=== PATIENT | male | born 1955 | race Caucasian/White ===

== ENCOUNTER 2018-08-12 08:29 | Day surgery (SDC) | payer MEDICARE ==
[~2018-08-12] VITALS: Ht 160 cm; Wt 62.3 kg
[2018-08-12 08:58] LABS: CALC OSMOLALITY 283 mosm/kg (275-300); CALCIUM 10.1 mg/dL (8.5-10.1); CARBON DIOXIDE 31.9 mmol/L (21.0-32.0); CHLORIDE - SERUM 103 mmol/L (98-107); CREATININE - SERUM 0.7 mg/dL (0.6-1.3); GLUCOSE 92 mg/dL (74-106); POTASSIUM - SERUM 3.3 mmol/L (3.5-5.1); SODIUM 143 mmol/L (136-145); UREA NITROGEN 11 mg/dL (7-18); eGFR NON AFRICAN AMERICAN > 90 mL/min (90-120)
[2018-08-12 09:06] LABS: APTT 32.5 SECONDS (22.8-39.4); INR 0.99 (0.85-1.17); PROTIME 12.6 SECONDS (11.6-15.0)
[2018-08-12] MEDS ORDERED: LEVO-T88 MCG PO (09:06)
[2018-08-12] MEDS ORDERED: NORTRIPTYLINE H50 MG PO (09:07)
[2018-08-12] MEDS ORDERED: FLUTICASONE PRO16 GM NASAL (09:07)
[2018-08-12] MEDS ORDERED: EFFEXOR25 MG PO (09:08)
[2018-08-12] MEDS ORDERED: CALCIUM 250+D T1 TAB PO (09:09)
[2018-08-12] MEDS ORDERED: CLARITIN 10 MG10 MG PO (09:09)
[2018-08-12] MEDS ORDERED: ASCORBIC ACID500 MG PO (09:10)
[2018-08-12] MEDS ORDERED: MERIBIN5 MG PO (09:11)
[2018-08-12] MEDS ORDERED: MULTI-DAY VITAM1 TAB PO (09:11)
[2018-08-12] MEDS ORDERED: FERROUS SULFAT325 MG PO (09:12)
[2018-08-12] MEDS ORDERED: MAGNESIUM OXID250 MG PO (09:13)
[2018-08-12] MEDS ORDERED: VITAMIN B-121000 MCG PO (09:14)
[2018-08-12 09:16] VITALS: BP 142/83; Ht 160 cm; Wt 62.3 kg
[2018-08-12 09:39] LABS: BASOPHILS 0.7 % (0-2); EOSINOPHILS 2.2 % (0-7); HEMATOCRIT 38.3 % (42.0-54.0); HEMOGLOBIN 13.1 g/dL (13.5-17.5); IMMATURE GRANULOCYTES 0.2 % (0-5); LYMPHOCYTES 18.7 % (15-50); MCH 31.1 pg (26.0-34.0); MCHC 34.2 g/dL (31.0-37.0); MONOCYTES 9.2 % (2-11); PLATELET COUNT 231 10x3/uL (130-400); RBC 4.21 10x6/uL (4.20-6.10); RDW 12.8 % (11.5-14.5)
--- NOTE | 2018-08-12 12:16 | NUR ---
DC INSTRUCTIONS GIVEN TO PT. STATES UNDERSTANDING. DC'D IV CATH FULLY INTACT. PT LEFT UNIT VIA WC AT 1200
--- NOTE | 2018-08-12 16:35 | OP ---
PATIENT NAME: SANTA PASTOR MEDICAL RECORD: [id number] :53 LOCATION:[facility] ADMISSION DATE: SURGEON: ZEESHAN LIZ DO DATE OF OPERATION: 08/12/2018 PROCEDURE: Colonoscopy with polypectomy and biopsy. INDICATIONS FOR PROCEDURE: Screening for colorectal cancer with a personal history of colon cancer. SCOPE: [employer] video pediatric colonoscope. MEDICATIONS: Propofol 750 mg IV per Anesthesia. WITHDRAWAL TIME: 23 minutes. ESTIMATED BLOOD LOSS: Minimal. COMPLICATIONS: None. FINDINGS: Informed consent was given. The patient was made comfortable with the above medication. After reaching an adequate level of sedation by slow IV push, the patient was placed on her left side. A digital rectal examination was performed and was normal. The endoscope was then advanced under direct visualization through the rectum to the cecum. The ileocolonic anastomosis was identified on her previous resection. The anastomosis itself looked normal and healthy. The endoscope was slowly withdrawn and mucosa was carefully examined. The prep quality was good. They were both small and large mouth diverticula scattered throughout the entire colon with the majority located around the sigmoid and descending colon. There were 3 separate polyps visualized on today's examination. One was located in the transverse colon. There was a benign appearing sessile polyp, which measured approximately 7 mm in diameter. It was removed using a hot snare in 1 piece and completely retrieved. There was a larger flat polyp located in the ascending colon, which measured approximately 1.2 cm in size. It was removed using endoscopic mucosal resection technique with a saline pillow followed by a hot snare in 1 piece with complete retrieval. Two endoclips were used to close the remaining defect left behind from removal of this polyp. The final polyp was located in the rectum. It was a benign appearing flat polyp, which measured approximately 6-7 mm in diameter. It was removed using a hot snare in 1 piece and completely retrieved. Retroflexion was performed in the rectum. There was a question of a rectal papilloma at the anal verge that was biopsied with forceps. This will be submitted for histopathology. The endoscope was unretroflexed and withdrawn from the patient. The patient tolerated the procedure well and there were no complications. IMPRESSION: 1. Three polyps as described above, removed using a combination of hot snare and endoscopic mucosal resection technique as well as endoclipping times 2. 2. Moderate diverticulosis involving the entire colon with the majority focused around the descending and sigmoid colon. 3. Questionable rectal papilloma at the anal verge, which was biopsied. PLAN AND RECOMMENDATIONS: 1. Discharge home when recovery parameters are met. 2. Follow up biopsy specimen results. OPERATIVE REPORT [id number] SANTA PASTOR 3. High fiber diet. 4. Continue current medications. 5. Recall colonoscopy in 1-2 years based on personal history of colon cancer and multiple polyps visualized and removed on today's examination. TRANSINT:[id number] Voice Confirmation ID: [id number] DOCUMENT ID: [id number] ZEESHAN LIZ DO at 1635 CC: [id number] DICTATION DATE: 08/12/18 1130 [facility] MACHINE OPERATOR HELPER: 08/12/18 1146 [facility] 08/12/18 [id number] [place] [address]
== END 2018-08-12 12:09 | disposition home or self-care (01) ==
LOC: D.OPS 08:29
PROVIDERS: Anesthesiology; ATTEND Internal Medicine Gastroenterology
DX: Z12.11 Encounter for screening for malignant neoplasm of colon (principal); D12.3 Benign neoplasm of transverse colon; D12.2 Benign neoplasm of ascending colon; K62.1 Rectal polyp; Z85.038 Personal history of other malignant neoplasm of large intestine; Z01.812 Encounter for preprocedural laboratory examination

== ENCOUNTER 2020-04-22 10:30 | Outpatient (CLI) | payer MEDICARE ==
[2018-08-12 09:16] VITALS: BMI 24.3
[~2020-04-22 10:30] MED LIST: ASCORBIC ACID500 MG PO; CALCIUM 250+D T1 TAB PO; CLARITIN 10 MG10 MG PO; EFFEXOR25 MG PO; FERROUS SULFAT325 MG PO; FLUTICASONE PRO16 GM NASAL; LEVO-T88 MCG PO; MAGNESIUM OXID250 MG PO; MERIBIN5 MG PO; MULTI-DAY VITAM1 TAB PO; NORTRIPTYLINE H50 MG PO; VITAMIN B-121000 MCG PO
== END 2020-04-22 23:59 | disposition home or self-care (01) ==
LOC: D.MAMMO 10:30
PROVIDERS: ATTEND Family Medicine
DX: Z12.31 Encounter for screening mammogram for malignant neoplasm of breast (principal)

== ENCOUNTER → 2020-07-16 10:11 | Outpatient (CLI) | payer MEDICARE ==
[2018-08-12 09:16] VITALS: BMI 24.3
[2020-07-16 10:49] LABS: ALBUMIN 4.2 g/dL (3.4-5.0); BILIRUBIN - DIRECT 0.15 mg/dL (0.00-0.30); BILIRUBIN - INDIRECT 0.29 mg/dL (0.00-1.00); BILIRUBIN - TOTAL 0.44 mg/dL (0.2-1.3)
== END | disposition home or self-care (01) ==
LOC: D.LAB 10:11
PROVIDERS: ATTEND Internal Medicine Gastroenterology
DX: R74.8 Abnormal levels of other serum enzymes (principal)